=== PATIENT | male | born 1970 | race Caucasian/White ===

== ENCOUNTER 2016-03-19 11:12 | Emergency (ER) | payer MEDICAID ==
[2016-03-19] MEDS ORDERED: SODIUM CHLORIDE 0.9% 1,000 ML ONE (12:08)
[2016-03-19] MEDS ORDERED: ONDANSETRON 4 MG/2ML 2 ML VIAL ONE (12:08)
[2016-03-19] MEDS ORDERED: METHYLPRED SOD SUCCINATE 125 MG VIAL ONE (12:09)
[2016-03-19] MEDS ORDERED: PROMETHAZINE HCL 25 MG/ML VIAL ONE (12:09)
--- NOTE | 2016-03-19 12:51 | CT ---
HEAD W/O CON History: Weakness and dizziness. Comparison: Procedure: 1 mm axial images were obtained through the head from the vertex to the base of the skull without intravenous contrast. Stacked reconstructed 5 mm images were then obtained in the axial, coronal and sagittal planes. Findings: The lateral ventricles appear to be of relatively normal size and shape without evidence of hydrocephalus. No evidence of midline shift is seen. No mass or mass effect is identified. No evidence of intra or extra-axial fluid collections or hemorrhage is seen. The basilar cisterns are uneffaced. The posterior fossa structures are unremarkable. Bone windows demonstrate extensive hardware fixation of the frontal calvarium and periorbital regions. Impression: 1. No findings of acute intracranial hemorrhage. 2. Extensive hardware fixation of the frontal and periorbital regions. No acute fracture is visualized.
[2016-03-19 12:54] LABS: ABSOLUTE NEUTROPHIL COUNT 4.1 K/mm3 (1.8-7.7); BASO # 0.1 K/mm3 (0.0-0.2); BASO % 1.3 % (0.2-1.0); EOS % 0.2 % (0.9-2.9); HEMATOCRIT 39.2 % (32.0-52.0); HEMOGLOBIN 14.2 gm/l (14.0-18.0); IMM NEUT% 0.6 % (0-1); LYMPH # 0.5 (1.0-4.8); LYMPH % 9.8 % (15-45); MEAN CELL VOLUME 95.6 fl (80.0-94.0); MEAN CORPUSCULAR HEMOGLOBIN 34.6 pg (27.0-31.0); MEAN CORPUSCULAR HGB CONC 36.2 g/dl (33.0-37.0); MEAN PLATELET VOLUME 12.5 fl (7.4-10.4); MONO # 0.6 (0.0-0.8); MONO % 11.8 % (4-12); NEUT % 76.3 % (43-75); PLATELET COUNT 94 K/mm3 (130-400); RED CELL DISTRIBUTION WIDTH 11.9 % (11.5-14.5)
[2016-03-19] MEDS ORDERED: MECLIZINE HCL 25 MG TABLET ONE (12:57)
[2016-03-19 13:05] LABS: ALB/GLOB RATIO 1.7 (>1.0); CALCIUM 9.7 mg/dL (8.6-10.3)
--- NOTE | 2016-03-19 13:07 | RAD ---
History: Dizziness with fall. Comparison: None. Technique: 2 views Findings: The soft tissue and bony structures are unremarkable. The heart size is appropriate. There is no focal infiltrate, effusion or pneumothorax is seen. There are high density foci seen projecting over the anterior left fifth rib in the anterior right seventh rib. These may reflect osseous abnormalities such as healed prior trauma or possibly superimposed calcific foci such as granulomatous disease. The hilar and mediastinal structures appear to be intact. Impression: 1. Subtle high density foci projecting over the anterior left fifth and anterior right seventh ribs, possibly reflecting osseous foci such as residua of prior trauma or possibly superimposed granulomatous disease. 2. An otherwise negative two-view chest.
[2016-03-19] MEDS ORDERED: KETOROLAC TROMETHAMINE 30 MG/ML 1 ML VIAL ONE (14:07)
== END 2016-03-19 14:50 | disposition home or self-care (01) ==
LOC: ED 11:12
DX: H81.10 Benign paroxysmal vertigo, unspecified ear (principal); F17.210 Nicotine dependence, cigarettes, uncomplicated
CPT/HCPCS: 85025; 80053; 80307; 71020; 70450; 96375 ×3; 99284; 96374; 93005; 99283; A9270; J2550; J2930; J1885; J2405; J7030